=== PATIENT | male | born 1995 | race American Indian/Alaskan Native ===

== ENCOUNTER 2021-07-13 09:26 | Emergency (ER) | payer SELFPAY ==
[2021-07-13] MEDS ORDERED: SILVER NITRATE APPLICATOR 1 EA TP ONE (09:40)
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
[2021-07-13] MEDS ORDERED: TETANUS,DIPH,PERTUSS(ACELL) VACCINE 0.5 ML SYRINGE IM ONE (09:45)
[2021-07-13 10:35] VITALS: BP 132/84
== END 2021-07-13 10:42 | disposition home or self-care (01) ==
LOC: ED 09:26
DX: T25.222A Burn of second degree of left foot, initial encounter (principal); X19.XXXA Contact with other heat and hot substances, initial encounter; Y93.89 Activity, other specified; Y92.89 Other specified places as the place of occurrence of the external cause; Y99.8 Other external cause status
CPT/HCPCS: 90471; 90715; 99282